=== PATIENT | male | born 1940 | race Caucasian/White ===

== ENCOUNTER 2018-12-06 16:36 | Inpatient (IN) | payer MEDICARE, OTHER ==
[~2018-12-06] VITALS: Ht 188 cm; Wt 131.1 kg
[~2018-12-06 16:36] MED LIST: ADULT LOW DOSE81 MG PO; AMBIEN5 MG PO; BACLOFEN10 MG PO; BACLOFEN5 GM PO; CYMBALTA60 MG PO; DILANTIN100 MG PO; FLOMAX0.4 MG PO; LASIX20 MG PO; LISINOPRIL10 MG PO; LORTAB 7.5-5001 EACH PO; LOVENOX30 MG/0.3 SC; LYRICA100 MG PO; NORCO 10MG-325MG1 EA PO; VALIUM10 MG PO
[2018-12-06 17:28] LABS: BASOPHILS % 0.6 % (0.0-1.0); EOSINOPHILS # (AUTO) 0.1 (0.0-0.4); EOSINOPHILS % 1.9 % (0.0-6.0); HEMATOCRIT 38.4 % (38.2-49.6); HEMOGLOBIN 12.6 g/dL (14.0-18.0); LYMPHOCYTES # (AUTO) 1.4 (1.0-3.2); LYMPHOCYTES % 18.6 % (18.0-39.1); MEAN CORPUSCULAR HGB CONC 32.8 g/dL (31-35); MEAN CORPUSCULAR VOLUME 97.5 fL (81-99); MONOCYTES # (AUTO) 0.7 (0.2-0.8); MONOCYTES % 9.6 % (4.4-11.3); PLATELET COUNT 209 x10e3/uL (140-360); RED BLOOD COUNT 3.94 x10e6/uL (4.3-5.7); RED CELL DISTRIBUTION WIDTH 13.3 % (11.7-14.4)
[2018-12-06 17:34] LABS: INR 0.82; PARTIAL THROMBOPLASTIN TIME 24.2 seconds (23.8-35.5); PROTHROMBIN TIME 11.8 seconds (11.9-14.5)
[2018-12-06 17:43] LABS: ALANINE AMINOTRANSFERASE 12 IU/L (0-55); ALBUMIN 3.5 g/dL (3.5-5.0); ALBUMIN/GLOBULIN RATIO 0.9 (0.8-2.0); ALKALINE PHOSPHATASE 90 IU/L (40-150); ANION GAP 12.2 mmol/L (8-16); BLOOD UREA NITROGEN 17 mg/dL (7-26); BUN/CREATININE RATIO 16 (6-25); CARBON DIOXIDE 31 mmol/L (22-29); CHLORIDE 101 mmol/L (98-107); CREATINE KINASE 33 IU/L (30-200); CREATININE, SERUM 1.05 mg/dL (0.72-1.25); EST GLOMERULAR FILTRATION RATE > 60 ML/MIN (60-); GLUCOSE 113 mg/dL (74-118); POTASSIUM 4.2 mmol/L (3.5-5.1); SODIUM 140 mmol/L (136-145)
--- NOTE | 2018-12-06 18:26 | Diagnostic Imaging Report ---
EXAMINATION: CHEST SINGLE (PORTABLE) INDICATION: ^ERMD ORDER ^[id number] ^1730 ^Y COMPARISON: None FINDINGS: AP view TUBES and LINES: None. LUNGS: Lungs are well inflated. Bibasilar atelectasis. Bilateral interstitial edema. PLEURA: No pleural effusion or pneumothorax. HEART AND MEDIASTINUM: Mild enlargement of the cardiac silhouette. BONES AND SOFT TISSUES: No acute osseous lesion. Soft tissues are unremarkable. UPPER ABDOMEN: No free air under the diaphragm. IMPRESSION: Mild cardiomegaly with associated bilateral interstitial edema. Signed by: Dr. Zaria Sandra M.D. on 12/06/2018 6:22 PM
[2018-12-06] MEDS ORDERED: ONDANSETRON HCL INJ 2MG/ML 2ML 2 MG/ML VIAL IV PRN (19:15)
--- OUTSIDE RECORDS SUMMARY | 2018-12-06 19:19 | XMS REPORT ---
Author [facility] Address Unknown Phone Unavailable Care Team Providers Care Traffic Manager Name Role Phone Nina SALES Unavailable Unavailable Problems This patient has no known problems. Allergies, Adverse Reactions, Alerts This patient has no known allergies or adverse reactions. Medications This patient has no known medications. Results Test Description Test Time Test Comments Text Results Atomic Results Result Comments CHEST SINGLE (PORTABLE) 2018-12-06 18:22:00 [place] [address] Patient Name: ABDIRAHMAN HYMAN MR #: [id number] : 1940 Age/Sex: 77/M Req #: [id number] Adm Physician: Ordered by: DARLENE WHEAT REMOVABLE PROSTHODONTIST Report #: [id number] Location: ER Room/Bed: Procedure: [id number] DX/CHEST SINGLE (PORTABLE) Exam Date: 12/06/18 Exam Time: 1730 REPORT STATUS: Signed EXAMINATION: CHEST SINGLE (PORTABLE) INDICATION: ERMD ORDER [id number] Y COMPARISON: None FINDINGS: AP view TUBES and LINES: None. LUNGS: Lungs are well inflated. Bibasilar atelectasis. Bilateral interstitial edema. PLEURA: No pleural effusion or pneumothorax. HEART AND MEDIASTINUM: Mild enlargement of the cardiac silhouette. BONES AND SOFT TISSUES: No acute osseous lesion. Soft tissues are unremarkable. UPPER ABDOMEN: No free air under the diaphragm. IMPRESSION: Mild cardiomegaly with associated bilateral interstitial edema. Signed by: Dr. Stan Ramirez M.D. on 12/06/2018 6:22 PM Dictated By: STAN RAMIREZ MD 21 Transcribed By: ZEINA on 12/06/181821 COPY TO: DARLENE WHEAT NP
[2018-12-06] MEDS ORDERED: HYDRALAZINE HCL 20 MG/ML VIAL IV STA (19:45)
[2018-12-06] MEDS ORDERED: HYDRALAZINE HCL 20 MG/ML VIAL ONE (19:52)
[2018-12-06] MEDS: SODIUM CHLORIDE 0.9% 1000ML 1,000 ML IV SCH (19:55)
[2018-12-06] MEDS ORDERED: HYDROCODONE/APAP 10MG-325MG TAB PO ONE (20:00)
[2018-12-06 20:15] VITALS: BP 180/82
[2018-12-06 21:46] LABS: BILIRUBIN,URINE NEGATIVE (NEGATIVE); CLARITY,URINE CLEAR (CLEAR); COLOR,URINE YELLOW (YELLOW); KETONES,URINE NEGATIVE (NEGATIVE); LEUKOCYTE ESTERASE ,URINE TRACE (NEGATIVE); NITRITE,URINE NEGATIVE (NEGATIVE); PROTEIN,URINE DIPSTICK TRACE (NEGATIVE); URINE UROBILINOGEN 0.2 mg/dL (0.2 - 1)
[2018-12-06 22:05] LABS: BACTERIA,URINE FEW /HPF; EPITHELIAL CELLS,URINE MANY /LPF; RBC,URINE 0-5 /HPF (0-5)
[2018-12-06] MEDS ORDERED: REMERON30 MG PO (22:33)
[2018-12-06] MEDS ORDERED: BACLOFEN 10 MG TAB PO SCH (23:12)
[2018-12-06] MEDS ORDERED: PHENYTOIN SODIUM EXT REL 100 MG CAP PO ONE (23:15)
[2018-12-06] MEDS ORDERED: ZOLPIDEM TARTRATE 5 MG TAB PO ONE (23:15)
[2018-12-06] MEDS ORDERED: BACLOFEN 10 MG TAB PO ONE (23:15)
[2018-12-06] MEDS ORDERED: MIRTAZAPINE 15 MG TAB PO ONE (23:15)
[2018-12-06] MEDS: DIAZEPAM 5 MG TAB PO SCH (23:39)
[2018-12-06] MEDS ORDERED: DOXAZOSIN MESYLA2 MG PO (23:44)
[2018-12-06] MEDS ORDERED: BENADRYL25 M1 PO ×2 (23:44)
[2018-12-07] VITALS (9 sets, daily range): BP systolic 153–195; BP diastolic 65–85
[2018-12-07] MEDS ORDERED: HYDRALAZINE HCL 20 MG/ML VIAL IV STA (01:40)
[2018-12-07 02:16] LABS: CREATINE KINASE MB 1.1 ng/mL (0-5.0)
[2018-12-07] MEDS: SODIUM CHLORIDE 0.9% 1000ML 1,000 ML IV SCH ×2 (05:02→15:02)
[2018-12-07 05:55] LABS: BASOPHILS # (AUTO) 0.1 (0.0-0.1); BASOPHILS % 0.5 % (0.0-1.0); EOSINOPHILS # (AUTO) 0.1 (0.0-0.4); EOSINOPHILS % 1.1 % (0.0-6.0); HEMATOCRIT 41.2 % (38.2-49.6); HEMOGLOBIN 13.4 g/dL (14.0-18.0); LYMPHOCYTES # (AUTO) 1.7 (1.0-3.2); LYMPHOCYTES % 18.9 % (18.0-39.1); MEAN CORPUSCULAR HEMOGLOBIN 31.3 pg (28-32); MEAN CORPUSCULAR HGB CONC 32.5 g/dL (31-35); MEAN CORPUSCULAR VOLUME 96.3 fL (81-99); MONOCYTES # (AUTO) 0.6 (0.2-0.8); NEUTROPHILS # (AUTO) 6.6 (2.1-6.9); NEUTROPHILS % 72.3 % (38.7-80.0); PLATELET COUNT 226 x10e3/uL (140-360); RED BLOOD COUNT 4.28 x10e6/uL (4.3-5.7); RED CELL DISTRIBUTION WIDTH 13.3 % (11.7-14.4)
[2018-12-07] MEDS: HYDROCODONE/APAP 10MG-325MG TAB PO PRN ×2 (06:13→14:22)
[2018-12-07 06:14] LABS: ALANINE AMINOTRANSFERASE 12 IU/L (0-55); ALBUMIN 3.6 g/dL (3.5-5.0); ALBUMIN/GLOBULIN RATIO 0.9 (0.8-2.0); ALKALINE PHOSPHATASE 93 IU/L (40-150); ANION GAP 12.6 mmol/L (8-16); BLOOD UREA NITROGEN 13 mg/dL (7-26); BUN/CREATININE RATIO 14 (6-25); CALCIUM 9.6 mg/dL (8.4-10.2); CARBON DIOXIDE 30 mmol/L (22-29); CHLORIDE 103 mmol/L (98-107); CREATININE, SERUM 0.95 mg/dL (0.72-1.25); EST GLOMERULAR FILTRATION RATE > 60 ML/MIN (60-); GLUCOSE 104 mg/dL (74-118); POTASSIUM 4.6 mmol/L (3.5-5.1); SODIUM 141 mmol/L (136-145)
[2018-12-07] MEDS: BACLOFEN 10 MG TAB PO SCH ×3 (07:58→21:26)
[2018-12-07] MEDS: FUROSEMIDE 20 MG TAB PO SCH (07:58)
[2018-12-07] MEDS: LISINOPRIL 10 MG TAB PO SCH (07:58)
[2018-12-07] MEDS: PHENYTOIN SODIUM EXT REL 100 MG CAP PO SCH ×2 (07:58→17:00)
[2018-12-07] MEDS: DULOXETINE HCL 30 MG DELAYED RELEASE PO SCH (07:58)
[2018-12-07] MEDS: TAMSULOSIN HCL 0.4 MG CAP PO SCH (07:58)
[2018-12-07] MEDS ORDERED: BACLOFEN 10 MG TAB PO SCH (08:00)
[2018-12-07] MEDS ORDERED: BISACODYL 5 MG TAB EC PO ONE ×4 (08:00→09:30)
[2018-12-07 09:23] LABS: CREATINE KINASE MB 1.3 ng/mL (0-5.0)
[2018-12-07] MEDS ORDERED: CITRATE OF MAGNESIA 300ML BOTTLE PO ONE ×2 (11:00→18:00)
[2018-12-07] MEDS ORDERED: ONDANSETRON HCL 4 MG ORAL DISINTEGRATING TAB PO PRN (14:00)
[2018-12-07] MEDS: ZOLPIDEM TARTRATE 5 MG TAB PO SCH (21:00)
[2018-12-07] MEDS: DIAZEPAM 5 MG TAB PO SCH (21:26)
[2018-12-07] MEDS: MIRTAZAPINE 15 MG TAB PO SCH (21:26)
[2018-12-07] MEDS: CLONIDINE HCL 0.1 MG TAB PO PRN (21:26)
[2018-12-08] VITALS (9 sets, daily range): BP systolic 119–200; BP diastolic 66–87
[2018-12-08] MEDS ORDERED: CITRATE OF MAGNESIA 300ML BOTTLE PO PRN (00:45)
[2018-12-08] MEDS ORDERED: BISACODYL 5 MG TAB EC PO ONE ×3 (00:45→01:45)
[2018-12-08] MEDS: SODIUM CHLORIDE 0.9% 1000ML 1,000 ML IV SCH ×3 (01:05→21:02)
[2018-12-08] MEDS: HYDROCODONE/APAP 10MG-325MG TAB PO PRN ×2 (01:11→18:30)
[2018-12-08] MEDS: HYDRALAZINE HCL 20 MG/ML VIAL IV PRN ×2 (04:05→20:46)
[2018-12-08] MEDS: LISINOPRIL 10 MG TAB PO SCH (08:05)
[2018-12-08] MEDS: BACLOFEN 10 MG TAB PO SCH ×3 (08:05→22:18)
[2018-12-08] MEDS: DULOXETINE HCL 30 MG DELAYED RELEASE PO SCH (08:05)
[2018-12-08] MEDS: FUROSEMIDE 20 MG TAB PO SCH (08:05)
[2018-12-08] MEDS: PHENYTOIN SODIUM EXT REL 100 MG CAP PO SCH ×2 (08:05→17:00)
[2018-12-08] MEDS: TAMSULOSIN HCL 0.4 MG CAP PO SCH (08:05)
--- NOTE | 2018-12-08 09:30 | Discharge Summary ---
HOSPITAL COURSE: Mr. Cotto is a 77-year-old man with history of hypertension, depression, polyneuropathy, BPH, chronic constipation, status post left above knee amputation, who came to the emergency room because he said he went to the restroom and he started seeing red blood. PHYSICAL EXAMINATION: GENERAL: Today, he is awake and alert. VITAL SIGNS: Temperature is 98.2, blood pressure 119/66. HEART: Regular rate. LUNGS: Clear to auscultation. ABDOMEN: Soft. LABORATORY DATA: On the blood work, potassium 4.6, creatinine is 0.95, glucose is 104. Cardiac enzymes came back negative. White count is 9.19, hemoglobin is 13.4, and hematocrit 41.2. Urine culture was negative. IMAGING DATA: Chest x-ray showed mild cardiomegaly with associated bilateral interstitial edema. ASSESSMENT: 1. Rectal bleeding. 2. Hypertension. 3. Chronic constipation. 4. Depression. 5. Benign prostatic hyperplasia. 6. 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 7. Status post left above-knee amputation. PLAN: The plan at present time is hemoglobin and hematocrit are stable. The patient is afebrile. Blood pressure is stable. He is going to go for a colonoscopy today. If negative, the patient will be able to be discharged home and follow up as an outpatient. All this was discussed with the patient and nurse. All questions were answered to satisfaction. Please see home medication reconciliation list. MD ALISIA Lemus/REMY /[id number]
[2018-12-08] MEDS ORDERED: GLUCAGON FOR INJ 1 MG VIAL ONE (14:55)
[2018-12-08] MEDS ORDERED: MIDAZOLAM HCL 2 MG/2 ML VIAL ONE (14:55)
[2018-12-08] MEDS: DIAZEPAM 5 MG TAB PO SCH (20:46)
[2018-12-08] MEDS: MIRTAZAPINE 15 MG TAB PO SCH (20:46)
[2018-12-08] MEDS: ZOLPIDEM TARTRATE 5 MG TAB PO SCH (22:18)
[2018-12-09] VITALS (8 sets, daily range): BP systolic 129–172; BP diastolic 58–80
[2018-12-09] MEDS: HYDROCODONE/APAP 10MG-325MG TAB PO PRN ×4 (00:30→23:43)
--- NOTE | 2018-12-09 03:50 | Operative Report ---
DATE OF PROCEDURE: 12/08/2018 SURGEON: Oliverio Mckay MD PROCEDURE: Colonoscopy with polypectomy and biopsies. REFERRING PHYSICIAN: Suleiman Marroquin MD INDICATIONS FOR COLONOSCOPY: Rectal bleeding. MEDICATION: The patient was done under MAC, please see anesthesiologist's note. DESCRIPTION OF PROCEDURE: With the patient in left lateral decubitus position, flexible fiberoptic Olympus colonoscope was inserted into the rectum with ease and advanced all the way to the distal ascending colon. Could not advance the scope any further secondary to excessive looping of the scope proximally. The scope was then withdrawn slowly. Whatever was visualized of the mucosa overlying the ascending colon, transverse colon, appeared to be within normal limits. Diverticular disease was noted to involve the descending colon as well as the sigmoid colon. An approximately 1 cm submucosal polypoid lesion with yellowish over hue was noted in the sigmoid colon that was biopsied. An approximately 2 cm polypoid lesion was noted in the distal rectum, appears to be at the dentate line and that was partially resected per snare electrocautery. The scope was then withdrawn. The patient tolerated the procedure well. IMPRESSION: 1. Colonoscopy to distal ascending colon. Could not advance any further due to excessive looping of the scope in the left colon. 2. Diverticulosis. 3. Rule out lipoma, sigmoid colon. 4. Polypoid lesion approximately 2 cm in size at the dentate line, partially resected per snare electrocautery. 5. Internal hemorrhoids, none actively bleeding. PLAN: Follow up histology. The patient will need General Surgical consultation for possible transanal resection of the mass. Oliverio Mckay MD [facility] /[id number] cc: Suleiman Marroquin MD
[2018-12-09] MEDS: SODIUM CHLORIDE 0.9% 1000ML 1,000 ML IV SCH ×2 (07:02→21:28)
[2018-12-09] MEDS: TAMSULOSIN HCL 0.4 MG CAP PO SCH (08:17)
[2018-12-09] MEDS: PHENYTOIN SODIUM EXT REL 100 MG CAP PO SCH ×2 (08:17→17:02)
[2018-12-09] MEDS: DULOXETINE HCL 30 MG DELAYED RELEASE PO SCH (08:17)
[2018-12-09] MEDS: LISINOPRIL 10 MG TAB PO SCH (08:18)
[2018-12-09] MEDS: FUROSEMIDE 20 MG TAB PO SCH (08:18)
[2018-12-09] MEDS: BACLOFEN 10 MG TAB PO SCH ×3 (08:18→23:43)
--- NOTE | 2018-12-09 10:51 | Progress Note ---
DATE: 12/09/2018 SUBJECTIVE: Mr. Cotto is a 77-year-old man with history of hypertension, depression, polyneuropathy, BPH, chronic constipation, status post left above knee amputation of the leg, came to the emergency room complaining of rectal bleeding. He had a colonoscopy done yesterday that shows a rectal mass that probably is going to require a transanal resection. PHYSICAL EXAMINATION: GENERAL: The patient is awake and alert. VITAL SIGNS: Temperature is 99.1, blood pressure is 172/75. HEART: Regular rate. LUNGS: Clear to auscultation. ABDOMEN: Soft. LABORATORY DATA: On the blood workup; white count of 9.19, hemoglobin 13.4. Potassium 4.6, creatinine is 0.95. Urine culture was negative. ASSESSMENT: On this patient is: 1. Rectal bleeding status post colonoscopy. 2. Rectal mass, probably benign. 3. Hypertension. 4. Chronic constipation. 5. Depression. 6. Benign prostatic hyperplasia. 7. Polyneuropathy. 8. Status post left above knee amputation. PLAN: At present time with this patient is we are going to get a surgical consult for possible transanal resection of the mass in the rectal area. All this was discussed with the patient. All questions were answered to satisfaction. Dr. Marroquin will resume care of the patient in the morning. Continue all other home medications. MD ALISIA Lemus/REMY /[id number]
[2018-12-09] MEDS ORDERED: MAGNESIUM HYDROXIDE 30 ML UDC PO ONE (21:00)
[2018-12-09] MEDS: DIAZEPAM 5 MG TAB PO SCH (23:43)
[2018-12-09] MEDS: MIRTAZAPINE 15 MG TAB PO SCH (23:43)
[2018-12-09] MEDS: ZOLPIDEM TARTRATE 5 MG TAB PO SCH (23:43)
[2018-12-10] VITALS (7 sets, daily range): BP systolic 111–189; BP diastolic 51–89
[2018-12-10] MEDS: CLONIDINE HCL 0.1 MG TAB PO PRN (00:50)
[2018-12-10] MEDS ORDERED: NOREPINEPHRINE 8 MG/D5W 250 ML 250 ML ONE (01:35)
[2018-12-10] MEDS: SODIUM CHLORIDE 0.9% 1000ML 1,000 ML IV SCH (03:02)
[2018-12-10 05:48] LABS: HEMATOCRIT 38.9 % (38.2-49.6); MEAN CORPUSCULAR HEMOGLOBIN 31.6 pg (28-32); MEAN CORPUSCULAR HGB CONC 33.4 g/dL (31-35); MEAN CORPUSCULAR VOLUME 94.6 fL (81-99); PLATELET COUNT 187 x10e3/uL (140-360); RED BLOOD COUNT 4.11 x10e6/uL (4.3-5.7); RED CELL DISTRIBUTION WIDTH 13.2 % (11.7-14.4)
[2018-12-10 06:03] LABS: ANION GAP 12.2 mmol/L (8-16); BLOOD UREA NITROGEN 12 mg/dL (7-26); BUN/CREATININE RATIO 14 (6-25); CALCIUM 8.7 mg/dL (8.4-10.2); CARBON DIOXIDE 25 mmol/L (22-29); CHLORIDE 100 mmol/L (98-107); CREATININE, SERUM 0.83 mg/dL (0.72-1.25); EST GLOMERULAR FILTRATION RATE > 60 ML/MIN (60-); GLUCOSE 104 mg/dL (74-118); POTASSIUM 3.2 mmol/L (3.5-5.1); SODIUM 134 mmol/L (136-145)
[2018-12-10] MEDS: BACLOFEN 10 MG TAB PO SCH ×3 (08:33→22:09)
[2018-12-10] MEDS: TAMSULOSIN HCL 0.4 MG CAP PO SCH (08:33)
[2018-12-10] MEDS: PHENYTOIN SODIUM EXT REL 100 MG CAP PO SCH ×2 (08:33→16:09)
[2018-12-10] MEDS: DULOXETINE HCL 30 MG DELAYED RELEASE PO SCH (08:33)
[2018-12-10] MEDS: FUROSEMIDE 40 MG TAB PO SCH (08:33)
[2018-12-10] MEDS: HYDRALAZINE HCL 20 MG/ML VIAL IV PRN (08:34)
[2018-12-10] MEDS: LISINOPRIL 10 MG TAB PO SCH (08:34)
[2018-12-10] MEDS ORDERED: BUPIVACAINE 0.25%/EPI 30ML SDV INJ ONE (11:58)
[2018-12-10] MEDS ORDERED: BUPIVACAINE HCL 0.5% INJ 30 ML VIAL INJ ONE (11:58)
[2018-12-10] MEDS ORDERED: LIDOCAINE HCL 2% 30 ML TUBE ONE (12:01)
[2018-12-10] MEDS ORDERED: LIDOCAINE HCL 1% LOCAL INJ 20 ML VIAL ONE (12:47)
[2018-12-10] MEDS ORDERED: SODIUM CHLORIDE 0.9% 1000ML 1,000 ML IV SCH (13:15)
[2018-12-10] MEDS ORDERED: HYDROMORPHONE 1MG/1ML INJ IV PRN (13:15)
[2018-12-10] MEDS ORDERED: POTASSIUM CHLORIDE 20 MEQ TAB CR PO ONE (15:15)
[2018-12-10] MEDS ORDERED: SODIUM CHLORIDE 0.9% 1000ML 1,000 ML ONE (15:40)
[2018-12-10] MEDS: HYDROCODONE/APAP 10MG-325MG TAB PO PRN ×2 (15:56→22:09)
[2018-12-10] MEDS: BETAMETHASONE/CLOTRIMAZOLE CR 15 GM TUBE TOP SCH (16:07)
--- NOTE | 2018-12-10 17:04 | Progress Note ---
DATE: 12/10/2018 SUBJECTIVE: The patient is complaining of rash in the lower abdomen. He is status post rectal tube removal by Dr. Rashawn Quinteros. PHYSICAL EXAMINATION: VITAL SIGNS: Blood pressure 132/72, temperature 98.4, heart rate 89 per minute, respiratory rate 16 per minute, and oxygen saturation is 95%. HEART: Showed regular rhythm. Normal S1, S2 sound. He had systolic murmur in the mitral area. LUNGS: Clear bilaterally. ABDOMEN: Soft. He had a rash on the lower part of the abdomen. EXTREMITIES: Show left above-knee amputation. LABORATORY DATA: On the BMP; sodium 134, potassium 3.2, chloride 100, CO2 25, BUN 12, creatinine 0.83, glucose 104. On CBC; white blood count 11.3, hemoglobin 13.0, hematocrit 38.9, platelet count of 187,000. PT 11.8, INR 0.82, PTT 24.2. AST 11, ALT 12, total bilirubin 0.4, alkaline phosphatase 93. IMPRESSION: 1. Rectal tumor, status post removal. 2. Hypertension. 3. Hypokalemia. 4. Obesity. 5. Peripheral vascular disease. PLAN OF TREATMENT: Continue the current diet. Continue cefoxitin q.6 hours, IV fluids at 50 mL/h, baclofen 30 mg at bedtime, lisinopril 10 mg daily, diazepam 10 mg at bedtime, [place] 1 tablet q.6 hours as needed for pain, furosemide 40 mg daily, Dilantin 100 mg twice a day, Cymbalta 60 mg daily, clonidine 0.1 mg q.6 hours as needed, Dilaudid 0.5 mg IV q.3 hours as needed, Flomax 0.4 mg daily, Remeron 30 mg at bedtime, Zofran 4 mg q.4 hours as needed, Ambien 10 mg at night p.r.n. for sleep, baclofen 20 mg twice a day, hydralazine 10 mg IV q.6 hours as needed. We are going to also start the patient on a daily potassium 40 mEq orally daily, I think he is on a daily furosemide. He had a low potassium. We are going to recheck BMP, magnesium, and CBC. Diet as tolerated. I am going to start Lamisil cream on the groin area twice a day for 2 weeks. MD ANA Desir/REMY /[id number]
[2018-12-10] MEDS: CEFOXITIN 1GM/ D5W 50ML 50 ML IV SCH (17:11)
[2018-12-10] MEDS ORDERED: ROCURONIUM BROMIDE 10 MG/ML 5ML VIAL ONE (18:45)
[2018-12-10] MEDS ORDERED: KETAMINE HCL INJ 50 MG/ML 10 ML VIAL ONE (18:45)
[2018-12-10] MEDS ORDERED: MIDAZOLAM HCL 2 MG/2 ML VIAL ONE (18:45)
[2018-12-10] MEDS ORDERED: ONDANSETRON HCL INJ 2MG/ML 2ML 2 MG/ML VIAL ONE (18:45)
[2018-12-10] MEDS ORDERED: LIDOCAINE HCL 2% LOCAL INJ 5 ML SDV VIAL INJ ONE (18:45)
[2018-12-10] MEDS ORDERED: EPHEDRINE SULFATE INJ 50 MG/10 ML SYR ONE (18:45)
[2018-12-10] MEDS ORDERED: DEXAMETHASONE SOD PHOS INJ 4 MG/ML VIAL ONE (18:45)
[2018-12-10] MEDS ORDERED: PHENYLEPHRINE HCL 1% 10 MG/ML VIAL ONE (18:45)
[2018-12-10] MEDS ORDERED: PROPOFOL IV EMULSION 10 MG/ML 20 ML VIAL ONE (18:45)
[2018-12-10] MEDS ORDERED: FENTANYL CITRATE/PF 100MCG/2 ML INJ ONE (18:45)
[2018-12-10] MEDS ORDERED: NEOSTIGMINE 5 MG/5ML SYR ONE (18:45)
[2018-12-10] MEDS ORDERED: GLYCOPYRROLATE INJ 1MG/ 5 ML SYR ONE (18:45)
--- NOTE | 2018-12-10 20:20 | Operative Report ---
DATE OF PROCEDURE: 12/10/2018 SURGEON: Rashawn Quinteros MD PREOPERATIVE DIAGNOSIS: Polypoid rectal tumor, rule out. POSTOPERATIVE DIAGNOSIS: Polypoid rectal tumor, rule out. OPERATION PERFORMED: Transanal full-thickness resection of polypoid rectal mass with partial proctectomy. RISK CONTROL SPECIALIST: ROSANNE Hirsch. ANESTHESIA: General. COMPLICATIONS: None. ESTIMATED BLOOD LOSS: Minimal DESCRIPTION OF PROCEDURE: The patient lying in bed in the lithotomy position under good general anesthesia, the perineum was prepped with Betadine solution and draped in the usual manner. A complete anorectal block was then performed with 0.25% Marcaine and 1% Xylocaine. Examination at this point revealed the presence of a polypoid mass, which is probably about 2-1/2 cm in size with an ulcerated surface, which was protruding from about the 7 o'clock position about 1 cm above the dentate line. The polypoid mass was then protruded through the anus and above, where the insertion of the polypoid mass in the rectum was present. The area was ligated with a 0 chromic suture. The lesion was then totally and completely resected including all the way up to the dentate line in a full-thickness fashion and sent for pathological examination. After this was done, hemostasis was ascertained. The wound was then further oversewn with the same 0 chromic suture and perfect hemostasis was ascertained. The skin and mucosa were then reapproximated with interrupted sutures of 3-0 chromic. Hemostasis was ascertained. Gelfoam pack impregnated with Xylocaine was placed. A dressing was applied. The sponge, lap, and needle count was correct. The patient tolerated the procedure well and returned to the recovery room in stable condition. Rashawn Quinteros MD [facility] /[id number]
[2018-12-10 20:44] LABS: ANION GAP 12.1 mmol/L (8-16); CALCIUM 8.3 mg/dL (8.4-10.2); CREATININE, SERUM 1.21 mg/dL (0.72-1.25); POTASSIUM 4.1 mmol/L (3.5-5.1)
[2018-12-10] MEDS ORDERED: PHENYTOIN SODIUM EXT REL 100 MG CAP PO ONE (22:00)
[2018-12-10] MEDS: DIAZEPAM 5 MG TAB PO SCH (22:09)
[2018-12-10] MEDS: ZOLPIDEM TARTRATE 5 MG TAB PO SCH (22:09)
[2018-12-10] MEDS: MIRTAZAPINE 15 MG TAB PO SCH (22:09)
[2018-12-11] VITALS: BP 103/48
[2018-12-11] MEDS: CEFOXITIN 1GM/ D5W 50ML 50 ML IV SCH (00:23)
[2018-12-11 04:00] VITALS: BP 133/50
[2018-12-11] MEDS: HYDROCODONE/APAP 10MG-325MG TAB PO PRN ×2 (05:30→13:45)
[2018-12-11 05:41] LABS: BASOPHILS % 0.3 % (0.0-1.0); EOSINOPHILS # (AUTO) 0.1 (0.0-0.4); EOSINOPHILS % 0.9 % (0.0-6.0); HEMATOCRIT 35.4 % (38.2-49.6); HEMOGLOBIN 11.6 g/dL (14.0-18.0); LYMPHOCYTES # (AUTO) 1.4 (1.0-3.2); LYMPHOCYTES % 13.7 % (18.0-39.1); MEAN CORPUSCULAR HEMOGLOBIN 31.6 pg (28-32); MEAN CORPUSCULAR HGB CONC 32.8 g/dL (31-35); MEAN CORPUSCULAR VOLUME 96.5 fL (81-99); MONOCYTES % 9.1 % (4.4-11.3); NEUTROPHILS # (AUTO) 7.9 (2.1-6.9); NEUTROPHILS % 75.6 % (38.7-80.0); PLATELET COUNT 191 x10e3/uL (140-360); RED BLOOD COUNT 3.67 x10e6/uL (4.3-5.7); RED CELL DISTRIBUTION WIDTH 13.4 % (11.7-14.4)
[2018-12-11 07:30] VITALS: BP 142/67
[2018-12-11 08:21] VITALS: BP 142/67
[2018-12-11] MEDS: DULOXETINE HCL 30 MG DELAYED RELEASE PO SCH (09:00)
[2018-12-11] MEDS ORDERED: POTASSIUM CHLORIDE 20 MEQ TAB CR PO SCH (09:00)
[2018-12-11] MEDS: PHENYTOIN SODIUM EXT REL 100 MG CAP PO SCH (09:01)
[2018-12-11] MEDS: BACLOFEN 10 MG TAB PO SCH (09:01)
[2018-12-11] MEDS: FUROSEMIDE 40 MG TAB PO SCH (09:01)
[2018-12-11] MEDS: TAMSULOSIN HCL 0.4 MG CAP PO SCH (09:01)
[2018-12-11] MEDS: LISINOPRIL 10 MG TAB PO SCH (09:02)
[2018-12-11] MEDS: BETAMETHASONE/CLOTRIMAZOLE CR 15 GM TUBE TOP SCH (09:10)
[2018-12-11 11:43] VITALS: BP 136/59
[2018-12-11 15:49] VITALS: BP 129/60
[2018-12-11] MEDS ORDERED: POTASSIUM CHLO10 ME1 PO (17:12)
[2018-12-11] MEDS ORDERED: KEFLEX500 MG PO (17:14)
--- NOTE | 2018-12-11 21:57 | Discharge Summary ---
ADDENDUM CORRECTION TO DISCHARGE SUMMARY EXTREMITIES: Show left above-knee amputation instead of bilateral amputation. MD ANA Desir/REMY /[id number]
--- NOTE | 2018-12-11 22:07 | Discharge Summary ---
HOSPITAL COURSE: The patient is a 77-year-old male, who had a past medical history positive for hypertension, polyneuropathy, bilateral below-knee amputation, came to the hospital because of rectal bleeding. He was found to have a rectal mass, which was removed by Dr. Rashawn Quinteros. The patient is going home today. PHYSICAL EXAMINATION: HEART: Showed regular rhythm. Normal S1 and S2 sound. LUNGS: Clear bilaterally. ABDOMEN: Soft. EXTREMITIES: Show bilateral below-knee amputation. VITAL SIGNS: Blood pressure 136/59, temperature 98.4 degrees Fahrenheit, heart rate 75 per minute, respiratory rate 18 per minute, oxygen saturation 94%. LABORATORY DATA: On the BMP; sodium 133, potassium 4.1, chloride 100, CO2 of 25, BUN 16, creatinine 1.21, glucose 124. On the CBC; white blood count 10.4, hemoglobin 11.6, hematocrit 35.4, platelet count 181,000. PT 11.8, INR 0.82, PTT 24.2. AST 11, ALT 12, total bilirubin 0.4, alkaline phosphatase 93. FINAL IMPRESSION: 1. Rectal mass, status post removal. 2. Peripheral vascular disease, status post bilateral knee below-knee amputation. 3. Obesity. 4. Hypokalemia. 5. Hypertension. PLAN OF TREATMENT: The patient is going to be discharged on lisinopril 10 mg daily, Dilantin 100 mg twice a day, Cymbalta 60 mg daily, clonidine 0.1 mg q.6 hours as needed, Flomax 0.4 mg daily, Remeron 30 mg at bedtime, Ambien 10 mg at nighttime as needed, baclofen 20 mg twice a day, potassium chloride 20 mEq daily, diazepam 10 mg at bedtime, furosemide 40 mg daily. Follow up with me in a couple of weeks. The patient has already been discharged by Dr. Oliverio Mckay and Dr. Rashawn Quinteros. Follow up with Dr. Rashawn Quinteros, surgeon and myself in a week. MD ANA Desir/REMY /[id number]
== END 2018-12-11 17:18 | disposition home or self-care (01) | DRG 348 ==
LOC: ER 16:36 → ERHOLD 19:16 → INTOOBSV 19:16 → MED/SURG 20:15 → OBSVTOIN 12-09 08:42
PROVIDERS: ADMIT Internal Medicine; ATTEND Internal Medicine
PROC: 0DBN8ZX Excision of Sigmoid Colon, Via Natural or Artificial Opening Endoscopic, Diagnostic (ICD-10-PCS; 2018-12-08)
PROC: 0DBP8ZX Excision of Rectum, Via Natural or Artificial Opening Endoscopic, Diagnostic (ICD-10-PCS; principal; 2018-12-08 15:00)
PROC: 0DBP7ZZ Excision of Rectum, Via Natural or Artificial Opening (ICD-10-PCS; 2018-12-10)
DX: C20 Malignant neoplasm of rectum (principal); K92.1 Melena; G61.81 Chronic inflammatory demyelinating polyneuritis; I10 Essential (primary) hypertension; K59.09 Other constipation; K57.90 Diverticulosis of intestine, part unspecified, without perforation or abscess without bleeding; K62.1 Rectal polyp; K64.9 Unspecified hemorrhoids; M54.9 Dorsalgia, unspecified; F32.9 Major depressive disorder, single episode, unspecified; G62.9 Polyneuropathy, unspecified; N40.0 Benign prostatic hyperplasia without lower urinary tract symptoms; E87.6 Hypokalemia; E66.9 Obesity, unspecified; E11.51 Type 2 diabetes mellitus with diabetic peripheral angiopathy without gangrene; Z89.612 Acquired absence of left leg above knee; K57.30 Diverticulosis of large intestine without perforation or abscess without bleeding; K64.8 Other hemorrhoids; K63.5 Polyp of colon; Z99.3 Dependence on wheelchair; Z68.37 Body mass index [BMI] 37.0-37.9, adult
CPT/HCPCS: 36415; 45380; 45385; 71045; 80048; 80053; 81001; 82550; 82553; 83735; 83880; 84484; 85007; 85025; 85027; 85610; 85730; 86850; 86900; 87086; 87493; 88305; 88342; 93005; 96374; 99284; G0378; J0360; J1100; J1610; J2001; J2250; J2370; J2405; J3010; J7030; Q0162